=== PATIENT | female | born 1950 | race Caucasian/White ===

== ENCOUNTER 2018-12-22 17:41 | Emergency (ER) | payer OTHER ==
[2018-12-22] MEDS ORDERED: IBUPROFEN 400 MG TAB ONE (18:13)
[2018-12-22] MEDS ORDERED: NA CHLORIDE 0.9% 500 ML ONE (18:37)
[2018-12-22] MEDS ORDERED: PROPOFOL 200 MG/20 ML VIAL IV ONE (18:38)
[2018-12-22] MEDS ORDERED: ONDANSETRON 4 MG/2 ML VIAL ONE (18:49)
--- NOTE | 2018-12-22 18:50 | RAD REPORT ---
EXAM DESCRIPTION: RAD - Ankle Right 3 View - 12/22/2018 6:27 pm CLINICAL HISTORY: Trip and fall downstairs COMPARISON: None. FINDINGS: Right ankle fracture dislocation present. Dome of the talus is dislocated posteriorly. Pos terior malleolus fracture is present. There is an oblique fracture through the distal fibula with pos terior angulation of the distal fracture fragment. Medial malleolus fracture is also suspected though without displacement. Talus is intact. No calcaneus acute injury. Small plantar spur is present. Sof t tissue swelling is present around the ankle joint. No foreign body. IMPRESSION: Right ankle bimalleolar, possibly trimalleolar, fracture with posterior dislocation of t he talus.
--- NOTE | 2018-12-22 19:31 | RAD REPORT ---
EXAM DESCRIPTION: RAD - Ankle Right 3 View - 12/22/2018 7:20 pm CLINICAL HISTORY: Right ankle fracture dislocation COMPARISON: Right ankle December 22 FINDINGS: Cast material is in place. The dislocated talus has been reduced back to anatomic position . There is a large posterior malleolus fracture along with fracture of the distal fibula.
--- NOTE | 2018-12-22 20:13 | ER ---
Nurse's Notes [facility] Name: Trish Ashraf Age: 68 yrs Sex: Female : 1950 Arrival Date: 12/22/2018 Time: 17:47 Bed 13 Private MD: Diagnosis: Trimalleolar fracture of lower leg Presentation: 12/22 17:47 Presenting complaint: EMS states: Pt tripped going down the stairs, felt a pop in her jl7 right ankle. Transition of care: patient was not received from another setting of care. Onset of symptoms was December 22, 2018. Risk Assessment: Do you want to hurt yourself or someone else? Patient reports no desire to harm self or others. Initial Sepsis Screen: Does the patient meet any 2 criteria? No. Patient's initial sepsis screen is negative. Does the patient have a suspected source of infection? No. Patient's initial sepsis screen is negative. Care prior to arrival: Splint applied. 17:47 Acuity: CORINNE 4 jl7 17:47 Method Of Arrival: EMS: [facility] 17:47 Care prior to arrival: Medication(s) given: Tylenol, 1000 mg. jl7 Triage Assessment: 17:58 General: Appears in no apparent distress. uncomfortable, Behavior is calm, cooperative, jl7 appropriate for age. Pain: Complains of pain in right ankle Pain does not radiate. Pain currently is 5 out of 10 on a pain scale. Neuro: Level of Consciousness is awake, alert, obeys commands, Oriented to person, place, time, situation. Cardiovascular: Patient's skin is warm and dry. Respiratory: Airway is patent Respiratory effort is even, unlabored, Respiratory pattern is regular, symmetrical. Derm: Skin is pink, warm \T\ dry. Musculoskeletal: Range of motion: limited in right ankle. Historical: - Allergies: 17:58 Niacin; jl7 - Home Meds: 17:58 benazepril oral oral [Active]; Simvastatin Oral [Active]; aspirin 81 mg Oral TbEC jl7 [Active]; - PMHx: 17:58 Hypertension; Hyperlipidemia; TIA; jl7 - PSHx: 17:58 Appendectomy; Hysterectomy; Tonsillectomy; Cholecystectomy; jl7 - Immunization history:: Adult Immunizations unknown. - Social history:: Smoking status: Patient/guardian denies using tobacco. - Ebola Screening: : No symptoms or risks identified at this time. Screenin:00 Abuse screen: Denies threats or abuse. Denies injuries from another. Nutritional jl7 screening: No deficits noted. Tuberculosis screening: No symptoms or risk factors identified. Fall Risk Fall in past 12 months (25 points). Total Almeida Fall Scale indicates Low Risk Score (25-44 pts). Fall prevention measures have been instituted. Side Rails Up X 2 Placed close to Nursing Station Frequent Obs/Assesments occuring As available Patient and Family Educated on Fall Prevention Program and strategies. Assessment: 18:00 General: See triage assessment. jl7 18:32 Reassessment: Dr. Weiss at bedside to update pt on POC, pt consented for moderate iw sedation procedure, suction set up, crash cart at bedside, pt placed on monitor, tech at beside to start IV. 19:36 Reassessment: Patient appears in no apparent distress at this time. Patient and/or rv family updated on plan of care and expected duration. Pain level reassessed. Patient is alert, oriented x 3, equal unlabored respirations, skin warm/dry/pink. patient is alert and oriented after undergoing conscious sedation. able to move all extremities. Patient states feeling better. Patient states symptoms have improved. 20:02 Reassessment: patient was able to ambulate with the crutches. rv Vital Signs: 17:58 BP 122 / 80; Pulse 73; Resp 17 S; Pulse Ox 100% on R/A; Pain 5/10; jl7 19:15 BP 121 / 80; Pulse 71; Resp 19; Pulse Ox 100% on R/A; rv 19:30 BP 137 / 87; Pulse 70; Resp 15; Pulse Ox 97% on R/A; Pain 2/10; rv 19:36 Pain 2/10; rv 19:45 BP 132 / 85; Pulse 72; Resp 13; Pulse Ox 97% on R/A; Pain 2/10; rv 20:00 BP 126 / 68; Pulse 73; Resp 13; Pulse Ox 98% on R/A; rv 20:15 BP 124 / 66; Pulse 71; Resp 15; Pulse Ox 98% ; rv ED Course: 17:47 Patient arrived in ED. jl7 17:49 Td Weiss MD is Attending Physician. kdr 17:55 Triage completed. jl7 17:58 Arm band placed on right wrist. jl7 18:00 Patient has correct armband on for positive identification. Bed in low position. Call [facility] light in reach. Side rails up X2. Pulse ox on. NIBP on. 18:07 Sajan Garcia, RN is Primary Nurse. jl7 18:28 Ankle Right 3 View XRAY In Process Unspecified. EDMS 19:00 Inserted saline lock: 22 gauge in right antecubital area, using aseptic technique. rv ,using aseptic technique. c/o Can OAKES. 19:21 Ankle Right 3 View XRAY In Process Unspecified. EDMS 19:27 Attending Physician role handed off by Td Weiss MD 19:27 Sterling Frazier MD is Attending Physician. 20:06 Assist provider with reduction of right ankle using manipulation, Set up for procedure. rv Performed by Sterling Frazier MD Immobilized with orthoglass splint Patient tolerated well. Can OAKES assisted the procedure. 20:10 Estuardo Villalba MD is Referral Physician. 20:28 IV discontinued, intact, bleeding controlled, No redness/swelling at site. Pressure rv dressing applied. Administered Medications: 18:16 Drug: Motrin 800 mg Route: PO; jl7 19:36 Follow up: Pain 2/10 Adult; Response: Marked relief of symptoms; Pain is decreased rv 19:15 Drug: Tetanus-Diphtheria Toxoid Adult 0.5 ml {Planning Lead: [employer]. Exp: rv 07/23/2020. Lot #: [id number]. } Route: IM; Site: right deltoid; 20:09 Follow up: Response: No adverse reaction rv Outcome: 20:13 Discharge ordered by . gs 20:27 Discharged to home with crutches, with family. rv 20:27 Condition: good 20:27 Discharge instructions given to patient, Instructed on discharge instructions, follow up and referral plans. medication usage, crutch walking, Demonstrated understanding of instructions, follow-up care, medications, crutch walking, Prescriptions given X 1. 20:28 Patient left the ED. rv Signatures: Dispatcher [employer] EDOR Td Weiss MD MD [facility] Darline Lira RN RN Sajan Garcia RN RN [facility] Sterling Frazier MD MD Brain, Jose Manuel, RN RN rv
--- NOTE | 2018-12-22 20:13 | EDPHYS ---
Physician Documentation [facility] Name: Trish Ashraf Age: 68 yrs Sex: Female : 1950 Arrival Date: 12/22/2018 Time: 17:47 Bed 13 Private MD: ED Physician Sterling Frazier HPI: 12/22 18:29 This 68 yrs old Female presents to ER via EMS with complaints of Ankle Injury.kdr 18:29 The patient presents with decreased range of motion, a deformity, an injury, pain, that kdr is acute, swelling, tenderness. The complaints affect the right ankle. Onset: The symptoms/episode began/occurred acutely, just prior to arrival. Context: The problem was sustained at home, resulted from the patient falling, down stairs, while walking, The mechanism of injury is unknown. The patient is unable to bear weight. The patient is not able to ambulate. Associated signs and symptoms: The patient has no apparent associated signs or symptoms. Modifying factors: The symptoms are alleviated by ice packs, the symptoms are aggravated by weight bearing, movement. Severity of symptoms: At their worst the symptoms were mild, moderate, just prior to arrival, in the emergency department the symptoms are unchanged. The patient has not experienced similar symptoms in the past. The patient has not recently seen a physician. Historical: - Allergies: 17:58 Niacin; jl7 - Home Meds: 17:58 benazepril oral oral [Active]; Simvastatin Oral [Active]; aspirin 81 mg Oral TbEC jl7 [Active]; - PMHx: 17:58 Hypertension; Hyperlipidemia; TIA; jl7 - PSHx: 17:58 Appendectomy; Hysterectomy; Tonsillectomy; Cholecystectomy; jl7 - Immunization history:: Adult Immunizations unknown. - Social history:: Smoking status: Patient/guardian denies using tobacco. - Ebola Screening: : No symptoms or risks identified at this time. ROS: 18:29 Constitutional: Negative for fever, chills, and weight loss, Eyes: Negative for injury, kdr pain, redness, and discharge. 18:29 MS/extremity: Positive for injury or acute deformity, decreased range of motion, pain, swelling, tenderness, of the right ankle, right Achilles and anterior aspect of right ankle. Exam: 18:29 Constitutional: This is a well developed, well nourished patient who is awake, alert, kdr and in no acute distress. 18:32 Musculoskeletal/extremity: Extremities: grossly normal except: noted in the right kdr ankle, right Achilles and anterior aspect of right ankle: decreased ROM, pain, swelling, tenderness. Vital Signs: 17:58 BP 122 / 80; Pulse 73; Resp 17 S; Pulse Ox 100% on R/A; Pain 5/10; jl7 19:15 BP 121 / 80; Pulse 71; Resp 19; Pulse Ox 100% on R/A; rv 19:30 BP 137 / 87; Pulse 70; Resp 15; Pulse Ox 97% on R/A; Pain 2/10; rv 19:36 Pain 2/10; rv 19:45 BP 132 / 85; Pulse 72; Resp 13; Pulse Ox 97% on R/A; Pain 2/10; rv 20:00 BP 126 / 68; Pulse 73; Resp 13; Pulse Ox 98% on R/A; rv 20:15 BP 124 / 66; Pulse 71; Resp 15; Pulse Ox 98% ; rv Procedures: 18:32 Splinting: Splint applied to right ankle, right Achilles and anterior aspect of right kdr ankle using Orthoglass splint, applied by myself. post reduction film - Examined by me, post splint application: Patient tolerated well. MDM: 18:29 Data reviewed: vital signs, nurses notes, lab test result(s), radiologic studies. kdr Counseling: I had a detailed discussion with the patient and/or guardian regarding: the historical points, exam findings, and any diagnostic results supporting the discharge/admit diagnosis, radiology results, the need for outpatient follow up. 19:30 Patient medically screened. gs 19:52 Differential diagnosis: fracture. Response to treatment: the patient's symptoms have gs markedly improved after treatment. ED course: seen and examined, good pain control, circulation after splint and POST XRAYS SHOW GOOD ALIGNMENT. 12/22 18:04 Order name: Ankle Right 3 View XRAY; Complete Time: 19:01 kdr 12/22 19:01 Order name: Ankle Right 3 View XRAY; Complete Time: 19:36 kdr 12/22 20:27 Order name: Crutches; Complete Time: 20:27 rv Administered Medications: 18:16 Drug: Motrin 800 mg Route: PO; jl7 19:36 Follow up: Pain 2/10 Adult; Response: Marked relief of symptoms; Pain is decreased rv 19:15 Drug: Tetanus-Diphtheria Toxoid Adult 0.5 ml {[employer] Rn: [employer]. Exp: rv 07/23/2020. Lot #: [id number]. } Route: IM; Site: right deltoid; 20:09 Follow up: Response: No adverse reaction rv Disposition: 12/22/18 20:13 Discharged to Home. Impression: Trimalleolar fracture of lower leg. - Condition is Stable. - Discharge Instructions: Displaced Trimalleolar Ankle Fracture Treated With Open Reduction. - Prescriptions for Tylenol- Codeine #4 300-60 mg Oral Tablet - take 1 tablet by ORAL route every 6 hours As needed; 12 tablet. - Medication Reconciliation Form, Thank You Letter, Antibiotic Education, Prescription Opioid Use form. - Follow up: Estuardo Villalba MD; When: 2 - 3 days; Reason: Re-evaluation by your physician. - Notes: colace for constipation Signatures: Dispatcher [employer] EDMS Td Weiss MD MD kdr Leal, Jahala, RN RN jl7 Sterling Frazier MD MD Jose Manuel De La Paz, CHAMP RN rv Corrections: (The following items were deleted from the chart) 18:33 18:29 Musculoskeletal/extremity: Extremities: grossly normal except: noted in the right kdr bicep and right antecubital area: kdr 20:28 20:13 12/22/2018 20:13 Discharged to Home. Impression: Trimalleolar fracture of lower rv leg. Condition is Stable. Forms are Medication Reconciliation Form, Thank You Letter, Antibiotic Education, Prescription Opioid Use. Follow up: Estuardo Villalba; When: 2 - 3 days; Reason: Re-evaluation by your physician. gs
[2018-12-22 20:46] VITALS: O2SAT 98
[2018-12-22 20:47] VITALS: BP 124/66
== END 2018-12-22 20:28 | disposition home or self-care (01) ==
LOC: ER 17:41
PROC: 0QSJXZZ Reposition Right Fibula, External Approach (ICD-10-PCS; principal; 2018-12-22)
DX: S82.851A Displaced trimalleolar fracture of right lower leg, initial encounter for closed fracture (principal); W10.9XXA Fall (on) (from) unspecified stairs and steps, initial encounter; Y93.89 Activity, other specified; Y92.9 Unspecified place or not applicable; Z23 Encounter for immunization
CPT/HCPCS: 73610 ×2; 27818; J2704; J7040; J2405; 90471; 99285